=== PATIENT | female | born 2005 | race Two or more races ===

== ENCOUNTER 2025-04-05 11:51 | Observation (INO) | payer MEDICAID ==
[2025-04-05 13:16] LABS: Hematocrit 36.7 % (36.0-46.0); Hemoglobin 12.7 g/dL (12.2-16.2); Mean Corpuscular Hemoglobin 31.2 pg (28.0-32.0); Mean Corpuscular Volume 90.1 fL (80.0-100.0); Nucleated Red Blood Cells % 0.1 %
--- NOTE | 2025-04-05 13:27 | DVH ---
BIOPHYSICAL PROFILE HISTORY: PIH TECHNIQUE: Multiple transabdominal real-time grayscale sonographic images through the gravid uterus of the fetus with duplex Doppler color flow and M-mode spectral analysis FINDINGS: BIOPHYSICAL PROFILE: breathing score: 2 movement score: 2 tone score: 2 Quantitative GREYSON score: 2 (GREYSON: 14.6 Cm.) Total score: 8 The cervix not well visualized Single live fetus in cephalic presentation. heart rate 130 beats per minute. Anterior placenta without previa or abruption IMPRESSION: Biophysical profile score: 8
[2025-04-05 13:34] LABS: Alanine Aminotransferase 11 U/L (7-40); Albumin 3.9 g/dL (3.2-4.8); Anion Gap 10 (5-15); BUN/Creatinine Ratio 14.6 (10.0-20.0); Bilirubin, Total 0.4 mg/dL (0.2-1.0); Blood Urea Nitrogen 6 mg/dL (9-23); Calcium 9.2 mg/dL (8.7-10.4); Carbon Dioxide 21 mmol/L (20-31); Chloride 106 mmol/L (98-107); Glucose 76 mg/dL (74-106); Potassium 3.9 mmol/L (3.5-5.1); Sodium 137 mmol/L (136-145); Total Protein 6.7 g/dL (5.7-8.2); Uric Acid 4.4 mg/dL (3.1-7.8)
[2025-04-05 13:35] LABS: Alkaline Phosphatase 213 U/L (46-116)
[2025-04-05 13:43] LABS: INR 0.92 (0.9-1.15); Partial Thromboplastin Time 25.7 SEC (24.5-34.5); Prothrombin Time 9.8 sec (9.3-11.8)
[2025-04-05 14:00] LABS: Urine Protein, UAD Negative (Negative)
[2025-04-05 14:09] LABS: Protein, Urine 7.4 mg/dL (1-14)
[2025-04-05] MEDS ORDERED: PREN-96 PO (14:36)
--- NOTE | 2025-04-05 18:01 | DVHDS2 ---
Physician Discharge Progress N Final Diagnosis: ruled out preeclampsia Operations or Procedures: Operations or Procedures S: 19yo IUP@38.1wks presents to OB triage from [facility] OB office for constant headaches rating 3/10 pain. It got credit or loans officer when she took tylenol last week. Denies UCs/LOF/VB/vision changes/RUQ pain. Endorses +FM. PNC with Merle fu CNM at [facility] OB office, uncomplicated. O: VSS NST reactive Negative BLE edema Laboratory Tests Test 04/05/25 12:15 04/05/25 12:38 Range/Units Urine Color Light-yellow Yellow Urine Clarity Clear Clear Urine pH 6.5 5.0-9.0 Urine Specific [place] 1.011 1.001-1.035 Urine Protein Negative Negative Urine Ketones Negative Negative Urine Blood 1+ H Negative /uL Urine Nitrite Negative Negative Urine Bilirubin Negative Negative Urine Urobilinogen Normal Negative mg/dL Urine Leukocyte Esterase Negative Negative /uL Urine RBC <1 0 - 4 /hpf Urine Microscopic WBC 1 0-5 /HPF Urine Squamous Epithelial Cells Few <5 /hpf Urine Bacteria Few H None Seen /hpf Urine Mucus Few None Seen Urine Creatinine 46.53 30.0-125.0 mg/dL Urine Protein/Creatinine Ratio 0.16 Urine Glucose Normal Normal mg/dL Urine Total Protein 7.4 1-14 mg/dL White Blood Count 8.4 4.4-10.8 10^3/uL Red Blood Count 4.08 4.0-5.20 10^6/uL Hemoglobin 12.7 12.2-16.2 g/dL Hematocrit 36.7 36.0-46.0 % Mean Corpuscular Volume 90.1 80.0-100.0 fL Mean Corpuscular Hemoglobin 31.2 28.0-32.0 pg Mean Corpuscular Hemoglobin Concent 34.6 32.0-36.0 g/dL Red Cell Distribution Width 14.7 H 11.8-14.3 % Platelet Count 169 140-450 10^3/uL Mean Platelet Volume 9.5 6.9-10.8 fL Neutrophils (%) (Auto) 74.2 37.0-80.0 % Lymphocytes (%) (Auto) 16.3 10.0-50.0 % Monocytes (%) (Auto) 8.6 0.0-12.0 % Eosinophils (%) (Auto) 0.7 0.0-7.0 % Basophils (%) (Auto) 0.2 0.0-2.0 % Neutrophils # (Auto) 6.3 1.6-8.6 10 ^3/uL Lymphocytes # (Auto) 1.4 0.4-5.4 10 ^3/uL Monocytes # (Auto) 0.7 0-1.3 10 ^3/uL Eosinophils # (Auto) 0.1 0-0.8 10 ^3/uL Basophils # (Auto) 0 0-0.2 10 ^3/uL Nucleated Red Blood Cells 0.1 % Prothrombin Time 9.8 9.3-11.8 sec Prothrombin Time INR 0.92 0.9-1.15 Activated Partial Thromboplast Time 25.7 24.5-34.5 SEC Sodium Level 137 136-145 mmol/L Potassium Level 3.9 3.5-5.1 mmol/L Chloride Level 106 98-107 mmol/L Carbon Dioxide Level 21 20-31 mmol/L Anion Gap 10 5-15 Blood Urea Nitrogen 6 L 9-23 mg/dL Creatinine 0.41 L 0.550-1.02 mg/dL Glomerular Filtration Rate Calc 143 >90 mL/min BUN/Creatinine Ratio 14.6 10.0-20.0 Serum Glucose 76 74-106 mg/dL Uric Acid 4.4 3.1-7.8 mg/dL Calcium Level 9.2 8.7-10.4 mg/dL Total Bilirubin 0.4 0.2-1.0 mg/dL Aspartate Amino Transferase (AST) 13 13-40 U/L Alanine Aminotransferase (ALT) 11 7-40 U/L Alkaline Phosphatase 213 H 46-116 U/L Total Protein 6.7 5.7-8.2 g/dL Albumin 3.9 3.2-4.8 g/dL A: 19yo IUP@38.1wks ruled out preeclampsia P: D/C home FKC/preE/labor precautions reviewed f/u with [facility] as scheduled Other Interventions Other Interventions [address] [address] Ph: [phone] DIAGNOSTIC IMAGING Diagnostic Imaging Report : [id number] Signed PATIENT: SARINA KEMP ACCT: [id number] UNIT: [id number] : 2005 LOC: [facility] ROOM / BED: [facility] / A AGE / SEX: 19 / F ADM STATUS: ADM IN SERVICE 1151 ORDERING PHYSICIAN: PHU FU CNM PROCEDURE(s): BPP - BIOPHYSICAL PROFILE REASON: PIH ORDER NUMBER(s): [id number], ACCESSION NUMBER(s): [id number] BIOPHYSICAL PROFILE HISTORY: PIH TECHNIQUE: Multiple transabdominal real-time grayscale sonographic images through the gravid uterus of the fetus with duplex Doppler color flow and M-mode spectral analysis FINDINGS: BIOPHYSICAL PROFILE: breathing score: 2 movement score: 2 tone score: 2 Quantitative GREYSON score: 2 (GREYSON: 14.6 Cm.) Total score: 8 The cervix not well visualized Single live fetus in cephalic presentation. heart rate 130 beats per minute. Anterior placenta without previa or abruption IMPRESSION: Biophysical profile score: 8 ATED BY: GLORY OLSEN MD DICTATED DATE/TIME: 04/05/25 1325 SIGNED BY: GLORY OLSEN MD SIGNED DATE/TIME: 04/05/25 1325 CC: Condition on Discharge: Stable Disposition: Home Discharge Instructions: Diet: Regular Activity: No Restrictions, As Tolerated Medications: see med list Follow Up Care: Specialist: f/u with [facility] as scheduled Discharge Statement: "Patient was advised to return to the ER or call 911 if any headaches, dizziness, shortness of breath, chest pain, abdominal pain, bleeding, fevers, or worsening of medical condition. Patient was counseled about treatment plan, medications, possible side effects, patientverbalized understanding. All questions were answered to the best of my ability. This discharge took greater then 30 minutes in planning, reviewing documentation, counseling the patient, and discussing with other team members." Visit Coding OBGYN Date of Service: Apr 05, 2025 Billing Provider: PHU FU CNM SANDWICH ARTIST Common Visit Codes: 88969-HRDYCMJ OBS CARE (MOD) SANDWICH ARTIST Procedure Codes: 83917-25- NON-STRESS TEST PHU FU CNM Apr 05, 2025 18:01
== END 2025-04-05 14:43 | disposition home or self-care (01) ==
LOC: UNDOADMOB 11:51 → LDRP 11:51 → UNDODISOB 14:43
PROVIDERS: ADMIT Obstetrics & Gynecology; ATTEND Obstetrics & Gynecology
DX: O13.3 Gestational [pregnancy-induced] hypertension without significant proteinuria, third trimester (principal); O26.893 Other specified pregnancy related conditions, third trimester; R51.9 Headache, unspecified; Z3A.38 38 weeks gestation of pregnancy; Z98.890 Other specified postprocedural states
CPT/HCPCS: 36415; 59025; 76819; 80053; 81001; 82570; 84156; 84550; 85025; 85610; 85730; 94760; G0378

== ENCOUNTER 2025-04-10 19:48 | Observation (INO) | payer MEDICAID ==
[~2025-04-10] VITALS: Ht 170.2 cm; Wt 93.9 kg
[~2025-04-10 19:48] MED LIST: PREN-96 PO
--- NOTE | 2025-04-11 14:58 | DVHDS2 ---
Discharge Summary Date of Admission Apr 10, 2025 at 19:48 Date of Discharge: Apr 10, 2025 Admitting Diagnosis 38-6/7 contractions no labor Wounds: None Labs/Diagnostic Data: NST reassuring and performed Brief Hx & Hospital Course: Patient here rule out labor was not in active labor went home came back the next day for deliver Consults/Reason for consult None Operations or Procedures None NST performed reactive reassuring Condition at Discharge: Good Final Diagnosis/Problems List 38-6/7 contractions Discharge Disposition: Home Discharge Instruct/Medications Diet: Regular Activity: No Restrictions, As Tolerated Follow Up/Referral: KEEP ALL CURRENT APPOINTMENTS WITH NASIR MONTANO CORPORATE TRAVEL COUNSELOR. PLEASE RETURN TO BIRTHPLACE IF CONTRACTIONS GET CLOSER AND STRONGER, OR IF YOU BEGIN TO EXPERIENCE LEAKING OF FLUID OR VAGINAL BLEEDING. Medications: CONTINUE TAKING ALL CURRENT MEDICATIONS PREVIOUSLY PRESCRIBED BY NASIR MONTANO CORPORATE TRAVEL COUNSELOR. Scheduled Vit W/ Ferrous Fumara ( One Daily), 1 TAB PO DAILY, (Reported) Discharge Statement: "Patient was advised to return to the ER or call 911 if any headaches, dizziness, shortness of breath, chest pain, abdominal pain, bleeding, fevers, or worsening of medical condition. Patient was counseled about treatment plan, medications, possible side effects, patientverbalized understanding. All questions were answered to the best of my ability. This discharge took greater then 30 minutes in planning, reviewing docume ntation, counseling the patient, and discussing with other team members." ASSESSMENT ASSESSMENT Assessment Visit Coding OBGYN Date of Service: Apr 10, 2025 Billing Provider: EDGARDO AMES DO CRUISE CONSULTANT Common Visit Codes: [id number] INP/OBS CARE(MOD), 20421-[id number] INP/OBS CARE(HIGH), 42114-RXH/OBS SAME DATE (LOW), 09578-WPH/OBS SAME DATE (MOD) CRUISE CONSULTANT Procedure Codes: 46053-83- NON-STRESS TEST EDGARDO AMES DO Apr 11, 2025 14:58
== END 2025-04-10 22:09 | disposition home or self-care (01) ==
LOC: LDRP 19:48
PROVIDERS: ADMIT Obstetrics & Gynecology; ATTEND Obstetrics & Gynecology
DX: O60.03 Preterm labor without delivery, third trimester (principal); Z3A.38 38 weeks gestation of pregnancy; Z98.890 Other specified postprocedural states
CPT/HCPCS: 59025; 81002; 94760; G0378

== ENCOUNTER 2025-04-11 06:00 | Inpatient (IN) | payer MEDICAID ==
[~2025-04-11] VITALS: Ht 170.2 cm; Wt 93.9 kg
[2025-04-11] MEDS ORDERED: LIDOCAINE 2%HCL (LOCAL ANESTH.) INJ 20ML MDV IJ PRN (06:30)
[2025-04-11] MEDS ORDERED: WITCH HAZEL-GLYCERIN PAD TOP PRN (06:30)
[2025-04-11] MEDS ORDERED: LACTATED RINGER'S 1,000 ML IV SCH (06:30)
[2025-04-11] MEDS ORDERED: PHISODERM TOP SOLN 240ML BTL TOP PRN (06:30)
[2025-04-11] MEDS ORDERED: DERMOPLAST 60ML BOTTLE TOP PRN (06:30)
[2025-04-11] MEDS ORDERED: BUTORPHANOL TARTRATE 2 MG/1 ML VIAL IV PRN ×2 (06:30)
[2025-04-11] MEDS ORDERED: ROPIVACAINE 0.5% (5MG/ML) 20ML AMPULE IJ ONE (06:45)
[2025-04-11] MEDS ORDERED: LACTATED RINGER'S 1,000 ML IV ONE (06:45)
[2025-04-11] MEDS ORDERED: NALOXONE HCL 0.4 MG/ML VIAL IV ONE (06:45)
[2025-04-11] MEDS ORDERED: ROPIVACAINE HCL 100 ML ONE (06:52)
[2025-04-11 07:04] LABS: Hematocrit 39.2 % (36.0-46.0); Hemoglobin 14.0 g/dL (12.2-16.2); Mean Corpuscular Hemoglobin 31.3 pg (28.0-32.0); Mean Corpuscular Volume 87.7 fL (80.0-100.0); Nucleated Red Blood Cells % 0.0 %
[2025-04-11 07:20] LABS: Alanine Aminotransferase 11 U/L (7-40); Albumin 4.1 g/dL (3.2-4.8); Anion Gap 17 (5-15); BUN/Creatinine Ratio 11.8 (10.0-20.0); Bilirubin, Total 0.8 mg/dL (0.2-1.0); Calcium 9.1 mg/dL (8.7-10.4); Chloride 104 mmol/L (98-107); Total Protein 7.3 g/dL (5.7-8.2)
[2025-04-11 07:21] LABS: Alkaline Phosphatase 242 U/L (46-116); Blood Urea Nitrogen 6 mg/dL (9-23); Carbon Dioxide 13 mmol/L (20-31); Glucose 111 mg/dL (74-106); Potassium 3.1 mmol/L (3.5-5.1); Sodium 134 mmol/L (136-145)
[2025-04-11 07:24] LABS: INR 0.93 (0.9-1.15); Partial Thromboplastin Time 26.7 SEC (24.5-34.5); Prothrombin Time 9.9 sec (9.3-11.8)
[2025-04-11] MEDS ORDERED: LACT. RINGERS/OXYTOCIN 20UNITS 500 ML IV ONE ×3 (08:00→10:45)
[2025-04-11] MEDS ORDERED: METHYLERGONOVINE MALEATE 0.2 MG/ML AMP IM PRN (08:00)
[2025-04-11] MEDS ORDERED: ONDANSETRON HCL 4 MG/2 ML VIAL IV PRN (08:00)
[2025-04-11 08:33] LABS: Amphetamine Screen, Urine Neg (NEGATIVE); Barbiturate Scree,Urine Neg (NEGATIVE); Benzodiazephine Screen, Urine Neg (NEGATIVE); Cannabinoid Screen, Urine Neg (NEGATIVE); Cocaine Screen, Urine Neg (NEGATIVE); Opiate Scree,Urine Neg (NEGATIVE); Phencyclidine Screen, Urine Neg (NEGATIVE)
[2025-04-11 08:35] LABS: Urine Protein, UAD TRACE (Negative)
[2025-04-11] MEDS: ACETAMINOPHEN 325 MG TAB PO PRN ×2 (08:41→17:35)
--- NOTE | 2025-04-11 10:30 | DVHHP2 ---
OB CC & HPI Date Date of Admission: Apr 11, 2025 Patient Identification: : 1 Para: 0 EDC: Apr 11, 2025 EGA: 40 wks Chief Complaints: Reason for admission: active labor Other reason for admission: Labor Admission Nurse Assessment Rev: Yes History of Present Complaints Labor see records Past Medical History Cardiac: No pertinent Hx Pulmonary: No pertinent Hx Central Nervous System: No pertinent Hx GI: No pertinent Hx Hemotology/Oncology: No pertinent Hx Hepatobiliary: No pertinent Hx Psychiatric: No pertinent Hx Musculoskeletal: No pertinent Hx Rheumotologic: No pertinent Hx Infectious Disease: No peritnent Hx ENT: No pertinent Hx Renal/: No pertinent Hx Endocrine: No pertinent Hx Dermatology: No pertinent Hx Past Surgical History: No pertinent Hx OB History OB History Care: Good Care Ultrasounds: Normal mid trimester US Obstetrical Complications: None Medical Complications: None Allergies: Coded Allergies: NO KNOWN ALLERGIES (Unverified , 04/10/25) Home Meds Reported Medications Vit W/ Ferrous Fumara ( One Daily) Daily Tab, 1 TAB PO DAILY, #90 TAB 3 Refills 04/05/25 Current Medications Current Medications Medications (Trade) Dose Ordered Sig/Cony Route PRN Reason Start Time Stop Time Status Last Admin Lactated Ringer's 1,000 ml @ 125 mls/hr Q8H IV 04/11/25 06:30 Witch Latosha (Tucks) 1 pad PRN PRN TOP PERINEAL AREA DISCOMFORT 04/11/25 06:30 Sodium Lauryl Sulfate (Phisoderm) 240 ml PRN PRN TOP PERINEAL AREA DISCOMFORT 04/11/25 06:30 Benzocaine (Dermoplast) 1 applic PRN PRN TOP PERINEAL AREA DISCOMFORT 04/11/25 06:30 Butorphanol Tartrate (Stadol Injection) 1 mg Q4HPRN PRN IV MODERATE PAIN (4-6 PAIN SCALE) 04/11/25 06:30 Hold Butorphanol Tartrate (Stadol Injection) 2 mg Q4HPRN PRN IV SEVERE PAIN (7-10 PAIN SCALE) 04/11/25 06:30 Lidocaine HCl (Xylocaine) 20 ml ONCE PRN IJ PERINEAL AREA DISCOMFORT 04/11/25 06:30 Ondansetron HCl (Zofran) 4 mg Q4HP PRN IV NAUSEA / VOMITING 04/11/25 08:00 Methylergonovine Maleate (Methergine) 0.2 mg Q8HP PRN IM POST HEMORRHAGE 04/11/25 08:00 04/13/25 07:59 Misoprostol (Cytotec) 200 mcg ONCE PRN SL BLEED/HEMORRHAGE 04/11/25 08:00 Misoprostol (Cytotec) 600 mcg ONCE PRN MT BLEED/HEMORRHAGE 04/11/25 08:00 Acetaminophen (Tylenol Tablet) 650 mg Q4HP PRN PO MODERATE PAIN (4-6 PAIN SCALE) 04/11/25 08:15 04/11/25 08:41 Family & Social History Family/Social History Blood Type: A+ Rubella: immune RPR/VDRL: Unknown GBS Status: Negative HBsAG: Negative Review of Systems Constitutional: No symptom reported Ears, Nose, & Throat: No symptom reported Eyes: No symptom reported Pulmonary/Respiratory: No symptom reported Cardiovascular: No symptom reported Gastrointestinal: No symptom reported Genitourinary: No symptom reported Musculoskeletal: No symptom reported Skin: No symptom reported Psychiatric: No symptom reported Endocrine: No symptom reported Hemotologic/Lymphatic: No symptom reported OB Admission Exam Physical Exam Vitals: Vital Signs Date Time Temp Pulse Resp B/P (MAP) Pulse Ox O2 Delivery O2 Flow Rate FiO2 04/11/25 08:41 100.4 Heart: Rhythm Normal Lungs: Clear Abdomen: Gravid Extremities: Normal Reflexes: Normal Cervical Dilatation: 10cm Effacement: 100% Station: +2 Membranes: Intact (AROM clear) Amniotic Fluid: Clear Heart Rate: 130's Accelerations: Accelerations Present Decelerations: No Decelerations Short Term Variability: Present Distillery Laborer Variability: Average (6-25) Contractions on Admission: < 5 Minutes Apart Intensity: Moderate OB Plan Plan Admitting Diagnosis: labor 40 wks fever unknown origin ,,,, Emperic Ancef and Tylenol given ; Urine C/S Epidural in place Plan: Expectant Management EDGARDO AMES DO Apr 11, 2025 10:30
--- NOTE | 2025-04-11 10:36 | LDN2 ---
Labor and Delivery Note Date 04/11/25 Age 19 1 Para 0 AB 0 EDC 04/11/2025 EGA 40 wks Diagnosis Labor , Fever unknown etiology Vaginal Delivery: VTX Vacuum Assisted: Yes (Vacuum placed 2+ station secondary to prolonged decreased heart tones patient refused episiotomy. The vacuum was placed for 2 contractions fingertip pressure used but the vacuum would not stay on it popped off twice because of the amount of hair on the baby's head was difficult to get a seal but she essentially delivered spontaneously nose and mouth bulb suctioned placed on the mom's abdomen with immediate vigorous cry and tone 60 seconds cord delay was performed then her cut the cord. Blood sample taken from the cord placenta removed and the family would like to take the placenta home with the placed on ice.) Placenta: Spontaneous (Three-vessel intact) Sex: Male Weight Pending Apgars 8/9 Amniotic Fluid: Clear Anesthesia Epidural in place Extension: Yes Repaired with 2-0 chromic EBL 300cc Labs Blood Bank 04/11/25 06:39: Blood Type A POSITIVE Complications none Conditions stable Station Baggage Porter none present at delivery Comments/Significant Med [place] Fever Visit Coding OBGYN Date of Service: Apr 11, 2025 Billing Provider: EDGARDO AMES DO FLAT LOCK OPERATOR Common Visit Codes: 74434-PAZ/OBS SAME DATE (HIGH) FLAT LOCK OPERATOR Procedure Codes: 27188-CQLYT OB CARE,VAG DELIVERY EDGARDO AMES DO Apr 11, 2025 10:36
[2025-04-11] MEDS ORDERED: ONDANSETRON ODT 4 MG TAB PO PRN (10:45)
[2025-04-11] MEDS: POTASSIUM CHL 20 Meq TABLET PO ONE (11:36)
[2025-04-11] MEDS: ceFAZolin 2 GM/D5W50ml 50 ML IV ONE (11:37)
[2025-04-11 12:14] VITALS: BP 111/66; PULSE 93; RESP 18; TEMP 100.8; O2SAT 98
[2025-04-11] MEDS: IBUPROFEN 600 MG TAB PO PRN ×2 (12:19→20:23)
[2025-04-11 13:37] VITALS: PULSE 76; RESP 18; O2SAT 98
[2025-04-11 15:02] VITALS: BP 111/58; PULSE 80; RESP 18; TEMP 98.8; O2SAT 99
[2025-04-11 19:00] VITALS: BP 106/61; PULSE 78; RESP 16; TEMP 97.9; O2SAT 96
[2025-04-11] MEDS: DOCUSATE SOD 100 MG CAP PO SCH (20:23)
[2025-04-11] MEDS ORDERED: DOCUSATE SOD 100 MG CAP PO SCH (22:00)
[2025-04-11 23:00] VITALS: BP 104/52; PULSE 73; RESP 16; TEMP 98.1; O2SAT 96
[2025-04-11] MEDS: ONDANSETRON HCL 4 MG/2 ML VIAL IV PRN (23:37)
--- NOTE | 2025-04-12 05:52 | DVHDS2 ---
Discharge Summary Date of Admission Apr 11, 2025 at 06:29 Date of Discharge: Apr 12, 2025 Admitting Diagnosis labor Wounds: no issues c/d/i Labs/Diagnostic Data: Laboratory Results Test 04/11/25 06:50 04/11/25 06:39 Urine Color Light-yellow (Yellow) Urine Clarity Clear (Clear) Urine pH 6.0 (5.0-9.0) Urine Specific [place] 1.019 (1.001-1.035) Urine Protein Trace (Negative) Urine Ketones 4+ (Negative) Urine Blood 1+ /uL (Negative) Urine Nitrite Negative (Negative) Urine Bilirubin Negative (Negative) Urine Urobilinogen Normal mg/dL (Negative) Urine Leukocyte Esterase Negative /uL (Negative) Urine RBC <1 /hpf (0 - 4) Urine Microscopic WBC 1 /HPF (0-5) Urine Squamous Epithelial Cells Few /hpf (<5) Urine Bacteria None seen /hpf (None Seen) Urine Mucus Few (None Seen) Urine Glucose Normal mg/dL (Normal) Urine Opiates Screen Neg (NEGATIVE) Urine Fentanyl Screen Neg (NEGATIVE) Urine Barbiturates Screen Neg (NEGATIVE) Urine Phencyclidine Screen Neg (NEGATIVE) Urine Amphetamines Screen Neg (NEGATIVE) Urine Benzodiazepines Screen Neg (NEGATIVE) Urine Cocaine Screen Neg (NEGATIVE) Urine Cannabinoids Screen Neg (NEGATIVE) White Blood Count 15.0 10^3/uL (4.4-10.8) Red Blood Count 4.47 10^6/uL (4.0-5.20) Hemoglobin 14.0 g/dL (12.2-16.2) Hematocrit 39.2 % (36.0-46.0) Mean Corpuscular Volume 87.7 fL (80.0-100.0) Mean Corpuscular Hemoglobin 31.3 pg (28.0-32.0) Mean Corpuscular Hemoglobin Concent 35.7 g/dL (32.0-36.0) Red Cell Distribution Width 14.2 % (11.8-14.3) Platelet Count 190 10^3/uL (140-450) Mean Platelet Volume 9.6 fL (6.9-10.8) Neutrophils (%) (Auto) 91.6 % (37.0-80.0) Lymphocytes (%) (Auto) 6.5 % (10.0-50.0) Monocytes (%) (Auto) 1.7 % (0.0-12.0) Eosinophils (%) (Auto) 0.0 % (0.0-7.0) Basophils (%) (Auto) 0.2 % (0.0-2.0) Neutrophils # (Auto) 13.8 10 ^3/uL (1.6-8.6) Lymphocytes # (Auto) 1.0 10 ^3/uL (0.4-5.4) Monocytes # (Auto) 0.3 10 ^3/uL (0-1.3) Eosinophils # (Auto) 0 10 ^3/uL (0-0.8) Basophils # (Auto) 0 10 ^3/uL (0-0.2) Nucleated Red Blood Cells 0.0 % Prothrombin Time 9.9 sec (9.3-11.8) Prothrombin Time INR 0.93 (0.9-1.15) Activated Partial Thromboplast Time 26.7 SEC (24.5-34.5) Sodium Level 134 mmol/L (136-145) Potassium Level 3.1 mmol/L (3.5-5.1) Chloride Level 104 mmol/L (98-107) Carbon Dioxide Level 13 mmol/L (20-31) Anion Gap 17 (5-15) Blood Urea Nitrogen 6 mg/dL (9-23) Creatinine 0.51 mg/dL (0.550-1.02) Glomerular Filtration Rate Calc 136 mL/min (>90) BUN/Creatinine Ratio 11.8 (10.0-20.0) Serum Glucose 111 mg/dL (74-106) Calcium Level 9.1 mg/dL (8.7-10.4) Total Bilirubin 0.8 mg/dL (0.2-1.0) Aspartate Amino Transferase (AST) 14 U/L (13-40) Alanine Aminotransferase (ALT) 11 U/L (7-40) Alkaline Phosphatase 242 U/L (46-116) Total Protein 7.3 g/dL (5.7-8.2) Albumin 4.1 g/dL (3.2-4.8) Treponema pallidum Antibody Non-reactive (Negative) Hepatitis C Antibody Negative (Negative) Other Laboratory Tests 04/11/25 06:39 Brief Hx & Hospital Course: no issues ,, ,, admission hypo k, fever on admission resolved Operations or Procedures Condition at Discharge: Good Final Diagnosis/Problems List S/P Discharge Disposition: Home Discharge Instruct/Medications Diet: Regular Activity: Light activity Follow Up/Referral: 2 weeks or prn Medications: tylenol prn Scheduled Vit W/ Ferrous Fumara ( One Daily), 1 TAB PO DAILY, (Reported) Discharge Statement: "Patient was advised to return to the ER or call 911 if any headaches, dizziness, shortness of breath, chest pain, abdominal pain, bleeding, fevers, or worsening of medical condition. Patient was counseled about treatment plan, medications, possible side effects, patientverbalized understanding. All questions were answered to the best of my ability. This discharge took greater then 30 minutes in planning, reviewing documentation, counseling the patient, and discussing with other team members." ASSESSMENT ASSESSMENT Assessment Visit Coding OBGYN Date of Service: Apr 12, 2025 Billing Provider: EDGARDO AMES DO CAD SPECIALIST Common Visit Codes: [id number] INP/OBS CARE (HIGH) CAD SPECIALIST Procedure Codes: 58155-XETAB OB CARE,VAG DELIVERY EDGARDO AMES DO Apr 12, 2025 05:52
[2025-04-12 07:30] VITALS: BP 96/53; PULSE 75; RESP 16; TEMP 97.6; O2SAT 95; O2SAT 98
[2025-04-12] MEDS: POTASSIUM CHL 20 Meq TABLET PO ONE (10:10)
[2025-04-12 11:13] VITALS: BP 109/57; PULSE 70; RESP 16; TEMP 98.1; O2SAT 96
[2025-04-12 15:07] VITALS: BP 101/62; PULSE 73; RESP 20; TEMP 99.2; O2SAT 96
[2025-04-12 18:52] VITALS: BP 105/62; PULSE 75; RESP 19; TEMP 98.6; O2SAT 96
== END 2025-04-12 21:02 | disposition home or self-care (01) | DRG 560 ==
LOC: LDRP 06:00 → OBSVTOIN 06:29 → LDRP 06:50
PROVIDERS: ADMIT Obstetrics & Gynecology; ATTEND Obstetrics & Gynecology
PROC: 10D07Z6 Extraction of Products of Conception, Vacuum, Via Natural or Artificial Opening (ICD-10-PCS; principal; 2025-04-11)
PROC: 3E0R3BZ Introduction of Anesthetic Agent into Spinal Canal, Percutaneous Approach (ICD-10-PCS; 2025-04-11)
PROC: 00HU33Z Insertion of Infusion Device into Spinal Canal, Percutaneous Approach (ICD-10-PCS; 2025-04-11)
PROC: 10907ZC Drainage of Amniotic Fluid, Therapeutic from Products of Conception, Via Natural or Artificial Opening (ICD-10-PCS; 2025-04-11)
PROC: 0KQM0ZZ Repair Perineum Muscle, Open Approach (ICD-10-PCS; 2025-04-11)
DX: O75.2 Pyrexia during labor, not elsewhere classified (principal); Z37.0 Single live birth; E87.6 Hypokalemia; O99.284 Endocrine, nutritional and metabolic diseases complicating childbirth; O76 Abnormality in fetal heart rate and rhythm complicating labor and delivery; Z3A.40 40 weeks gestation of pregnancy; O70.1 Second degree perineal laceration during delivery
CPT/HCPCS: 36415; 59025; 59409; 62282; 80053; 80307; 81001; 81002; 85025; 85610; 85730; 86703; 86780; 86803; 86850; 86900; 86901; 94760; 96360; 96361; 96365; 96366; 96374; G0378; J2405; J2590